=== PATIENT | female | born 2000 | race Caucasian/White ===

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

== ENCOUNTER 2020-03-25 07:15 | Day surgery (SDC) | payer MEDICAID ==
[2020-03-21 16:16] LABS: BASOPHILS # (AUTO) 0.1 X10'3 (0-0.2); EOSINOPHILS # (AUTO) 0.3 X10'3 (0-0.9); EOSINOPHILS % (AUTO) 3.5 % (0-6); LYMPHOCYTES # (AUTO) 2.7 X10'3 (1.1-4.8); LYMPHOCYTES % (AUTO) 38.8 % (21-51); MEAN CORPUSCULAR HEMOGLOBIN 30.4 PG (27.0-31.0); MEAN CORPUSCULAR HGB CONC 34.3 g/dL (33.0-36.5); MEAN CORPUSCULAR VOLUME 88.6 FL (78-98); MEAN PLATELET VOLUME 6.9 FL (7.4-10.4); MONOCYTES # (AUTO) 0.8 X10'3 (0-0.9); MONOCYTES % (AUTO) 11.7 % (2-12); NEUTROPHILS # (AUTO) 3.2 X10'3 (1.8-7.7); PRE OP HEMATOCRIT 44.4 % (35.0-45.0); PRE OP HEMOGLOBIN 15.2 g/dL (12.0-16.0); PRE OP PLATELET COUNT 292 X10'3 (140-440); RED BLOOD COUNT 5.01 X10'6 (4.20-5.60); RED CELL DISTRIBUTION WIDTH 13.1 % (11.5-14.5)
[2020-03-21 16:46] LABS: HCG SERUM QL NEGATIVE
[~2020-03-25] VITALS: Ht 154.9 cm; Wt 122.3 kg
[~2020-03-25 07:15] MED LIST changes: +BUPIVAcaine/PF 2.5mg/ml (0.25%) 10ml vial ONE; -CLA10T PO; +NO HOME MEDS; -SUMA50TA PO; +cefazolin/dext.iso 2gm/50ml 50 ML IV ONE; +famotidine 20mg tablet PO ONE; +ringers solution, lacted 1,000 ML IV SCH
[2020-03-25] MEDS ORDERED: LIDOcaine 0.5% (5mg/ml) 50ml vial ONE (07:58)
[2020-03-25] MEDS ORDERED: ringers solution, lacted 1,000 ML IV SCH (08:06)
[2020-03-25] MEDS ORDERED: morphine 2 MG/ML inj. syringe IV PRN (08:10)
[2020-03-25] MEDS ORDERED: ondansetron/PF 4mg/2ml inj IV PRN (08:10)
[2020-03-25] MEDS ORDERED: morphine 4 MG/ML inj SYRINge IV PRN (08:10)
[2020-03-25] MEDS ORDERED: proCHLORperazine 10 MG/2 ml inj IV PRN (08:10)
[2020-03-25] MEDS ORDERED: meperidine/PF 25mg/ml syringe IV PRN ×3 (08:10)
[2020-03-25 10:00] VITALS: BP 149/76
[2020-03-25] MEDS ORDERED: MIDAZolam 5mg/5ml vial ONE (10:09)
[2020-03-25] MEDS ORDERED: fentaNYL/PF 50MCG/1 ML 2ML syringe ONE (10:09)
[2020-03-25] MEDS ORDERED: propofol inj 20 ML IV ONE (10:21)
[2020-03-25 10:50] VITALS: BP 123/84
--- NOTE | 2020-03-25 10:50 | NUR ---
Received from OR via [facility] , accompanied by Anesthesiologist SYLVIA and report given by Anesthesiolgist. PATIENT WITH 20G PIV IN LEFT UE RUNNING LR. VSS. RIGHT WRIST DRESSING IS CDI. + CAP REFILL, SENSATSION AND MOVEMENT.. NO DRAINGE PRESENT- DRESSING CDI. VSS. Addendum: 03/25/20 at 1102 by Jonny Valero RN, RN Amended: Links added.
[2020-03-25 10:59] VITALS: BP 123/84
[2020-03-25 11:00] VITALS: BP 140/87
[2020-03-25 11:10] VITALS: BP 147/89
[2020-03-25 11:20] VITALS: BP 145/82
--- NOTE | 2020-03-25 11:30 | NUR ---
All dc criteria for discharge home has been met. IV taken out without complications. All questions answered regarding dc paperwork. Vss. Significant other present to take patient home. Dressings cdi and vital signs stable. Taken out via wheelchair to personal vehicle where patient taken home by family/friend. DISCUSSED ELEVATION WITH ICE AND WIGGLING FINGERS TO CONTROL EDEMA. ALL QUESTIONS ANSWERED, VSS. Addendum: 03/25/20 at 1144 by Jonny Valero RN, RN Amended: Links added.
== END 2020-03-25 11:30 | disposition home or self-care (01) ==
LOC: PAS 07:15
PROVIDERS: ATTEND Orthopaedic Surgery Hand Surgery
DX: M65.4 Radial styloid tenosynovitis [de Quervain] (principal); M65.841 Other synovitis and tenosynovitis, right hand; G43.909 Migraine, unspecified, not intractable, without status migrainosus; E66.9 Obesity, unspecified; Z68.41 Body mass index [BMI] 40.0-44.9, adult; Z79.899 Other long term (current) drug therapy; Z11.59 Encounter for screening for other viral diseases; Z88.8 Allergy status to other drugs, medicaments and biological substances
CPT/HCPCS: 25000; 29846; 36415; 84703; 85025; J2001; J2250; J2405; J2704; J3010; J3490; J7120; U0003; A4215; A4618; A7000

== ENCOUNTER 2020-10-12 15:27 | Emergency (ER) | payer MEDICAID ==
[~2020-10-12] VITALS: Ht 172.7 cm; Wt 122.7 kg
[~2020-10-12 15:27] MED LIST changes: -BUPIVAcaine/PF 2.5mg/ml (0.25%) 10ml vial ONE; -cefazolin/dext.iso 2gm/50ml 50 ML IV ONE; -famotidine 20mg tablet PO ONE; -ringers solution, lacted 1,000 ML IV SCH
[2020-10-12 16:14] LABS: BASOPHILS # (AUTO) 0.1 X10'3 (0-0.2); BASOPHILS % (AUTO) 0.6 % (0-1); EOSINOPHILS # (AUTO) 0.2 X10'3 (0-0.9); EOSINOPHILS % (AUTO) 2.1 % (0-6); HEMATOCRIT 43.1 % (35.0-45.0); HEMOGLOBIN 14.8 g/dl (12.0-16.0); LYMPHOCYTES # (AUTO) 3.5 X10'3 (1.1-4.8); LYMPHOCYTES % (AUTO) 37.5 % (21-51); MEAN CORPUSCULAR HEMOGLOBIN 29.9 PG (27.0-31.0); MEAN CORPUSCULAR HGB CONC 34.4 g/dL (33.0-36.5); MEAN PLATELET VOLUME 7.1 FL (7.4-10.4); MONOCYTES # (AUTO) 0.8 X10'3 (0-0.9); MONOCYTES % (AUTO) 8.7 % (2-12); NEUTROPHILS # (AUTO) 4.7 X10'3 (1.8-7.7); NEUTROPHILS % (AUTO) 51.1 % (42-75); PLATELET COUNT 295 X10'3 (140-440); RED BLOOD COUNT 4.96 X10'6 (4.20-5.60); RED CELL DISTRIBUTION WIDTH 12.7 % (11.5-14.5); WHITE BLOOD COUNT 9.3 X10'3 (4.5-11.0)
[2020-10-12 16:25] LABS: ALANINE AMINOTRANSFERASE 108 U/L (12-78); ALBUMIN 4.2 G/DL (3.4-5.0); ALKALINE PHOSPHATASE 115 IU/L (46-116); ANION GAP 11 (8-16); ASPARTATE AMINO TRANSFERASE 42 U/L (10-37); BILIRUBIN,TOTAL 0.2 MG/DL (0.1-1.0); BLOOD UREA NITROGEN 8 MG/DL (7-18); BUN/CREATININE RATIO 10.8 (6.6-38.0); CALCIUM 9.7 MG/DL (8.5-10.1); CHLORIDE 103 MMOL/L (99-107); CREATININE 0.74 MG/DL (0.40-0.90); GLUCOSE 93 MG/DL (70-104); LIPASE 75 U/L (73-393); POTASSIUM 3.5 MMOL/L (3.5-5.1); SODIUM 138 MMOL/L (135-145); TOTAL CARBON DIOXIDE 23.7 MMOL/L (24-32); TOTAL PROTEIN 8.4 G/DL (6.4-8.2); eGFR > 90 ML/MIN
[2020-10-12 17:02] LABS: URINE HCG NEGATIVE (NEG)
[2020-10-12 17:15] LABS: CLARITY,URINE CLEAR (Clear); COLOR,URINE YELLOW (Yellow); GLUCOSE, URINE NEGATIVE (Neg); KETONES,URINE NEGATIVE (Neg); LEUKOCYTE ESTERASE ,URINE NEGATIVE (Neg); NITRITES, URINE NEGATIVE (Neg); OCCULT BLOOD,URINE MODERATE (Neg); PH,URINE 6.5 (4.8-8.0); PROTEIN,URINE NEGATIVE (Neg); UROBILINOGEN,URINE 0.2 E.U/dL (0.2-1.0)
[2020-10-12 17:19] LABS: UA COLLECTION TYPE CLN CATCH MIDSTREAM
[2020-10-12 17:46] LABS: BACTERIA,URINE FEW /HPF (Neg); RBC,URINE 0-2 /HPF (0-2); SQUAMOUS EPITHELIAL CELL,UR MODERATE /LPF (FEW); WBC,URINE NONE SEEN /HPF (0-4)
[2020-10-12] MEDS ORDERED: ibuprofen tablet 400 MG TABLET PO ONE (19:05)
[2020-10-12] MEDS ORDERED: ondansetron 4mg rapidly disintigrating tab PO ONE (19:05)
[2020-10-12] MEDS ORDERED: ibuprofen 200mg tablet PO ONE (19:15)
--- NOTE | 2020-10-12 20:06 | NUR ---
TRANSVAGINAL US IN PROGRESS NOW.
[2020-10-12 20:34] VITALS: BP 179/108
== END 2020-10-12 20:54 | disposition home or self-care (01) ==
LOC: ER 15:27
DX: R10.31 Right lower quadrant pain (principal); G43.909 Migraine, unspecified, not intractable, without status migrainosus; J45.909 Unspecified asthma, uncomplicated; Z79.899 Other long term (current) drug therapy
CPT/HCPCS: 36415; 76830; 76856; 80053; 81001; 81025; 83690; 85025; 93976; 99284